=== PATIENT | female | born 1940 | race Caucasian/White ===

== ENCOUNTER 2018-06-29 06:24 | Outpatient (CLI) | payer OTHER ==
[2018-06-30] MEDS ORDERED: ZOCOR40 MG PO (15:14)
[2018-06-30] MEDS ORDERED: CARDURA1 MG PO (15:14)
[2018-06-30] MEDS ORDERED: LOSARTAN-HCTZ1 EAC1 PO (15:15)
[2018-06-30] MEDS ORDERED: TOPROL XL50 MG PO (15:15)
[2018-06-30] MEDS ORDERED: METFORMIN HCL500 MG PO (15:16)
[2018-06-30] MEDS ORDERED: ACTOS30 MG PO (15:16)
[2018-06-30] MEDS ORDERED: NEURONTIN600 MG PO (15:17)
[2018-06-30] MEDS ORDERED: ASPIR 8181 MG PO (15:17)
[2018-06-30] MEDS ORDERED: [UNRECOGNIZED DRUG - OTHER] PO (15:18)
[2018-06-30] MEDS ORDERED: TRAMADOL HCL50 MG PO (15:18)
== END 2018-06-29 06:38 | disposition home or self-care (01) ==
LOC: RAD 06:24
DX: M51.27 Other intervertebral disc displacement, lumbosacral region (principal); M54.17 Radiculopathy, lumbosacral region; D68.8 Other specified coagulation defects; M47.899 Other spondylosis, site unspecified

== ENCOUNTER → 2018-06-30 10:48 | Outpatient (CLI) | payer OTHER ==
[~2018-06-30 10:48] MED LIST: ACTOS30 MG PO; ASPIR 8181 MG PO; CARDURA1 MG PO; LOSARTAN-HCTZ1 EAC1 PO; METFORMIN HCL500 MG PO; NEURONTIN600 MG PO; TOPROL XL50 MG PO; TRAMADOL HCL50 MG PO; ZOCOR40 MG PO; [UNRECOGNIZED DRUG - OTHER] PO
== END | disposition home or self-care (01) ==
LOC: LAB 10:48 → RAD 10:48
DX: M54.17 Radiculopathy, lumbosacral region (principal); M51.27 Other intervertebral disc displacement, lumbosacral region; D68.8 Other specified coagulation defects; M47.818 Spondylosis without myelopathy or radiculopathy, sacral and sacrococcygeal region; E11.618 Type 2 diabetes mellitus with other diabetic arthropathy; N39.0 Urinary tract infection, site not specified; M54.6 Pain in thoracic spine; R82.79 Other abnormal findings on microbiological examination of urine; M48.07 Spinal stenosis, lumbosacral region

== ENCOUNTER 2018-07-02 05:40 | Day surgery (SDC) | payer OTHER | END 2018-07-02 09:45 | disposition home or self-care (01) | LOC: CIR.AMB 05:40 | DX: M51.17 Intervertebral disc disorders with radiculopathy, lumbosacral region (principal) ==